=== PATIENT | male | born 2000 | race Two or more races ===

== ENCOUNTER 2025-04-11 22:11 | Emergency (ER) | payer SELFPAY ==
[2025-04-11 22:14] VITALS: BMI 19.6
--- NOTE | 2025-04-11 23:03 | EKG_ITS ---
[facility] Test Date: 2025-04-11 Pat Name: LIMA Mackeypartment: Room: - Gender: Male [employer]: : 2000 Requested By: Luis Meléndez Order Number: [id number] Reading MD: Luis Meléndez Measurements Intervals [place] Rate: 62 P: 78 TX: 157 QRS: 118 QRSD: 93 T: 59 QT: 357 QTc: 364 Interpretive Statements SINUS RHYTHM LEFT POSTERIOR FASCICULAR BLOCK [QRS AXIS > 109, INFERIOR Q] EARLY REPOLARIZATION [ST ELEVATION WITH NORMALLY INFLECTED T-WAVE] No previous ECG available for comparison /[id number]/[email or web address]/[id number]
--- NOTE | 2025-04-11 23:03 | XR_ITS ---
Examination: CT brain head without contrast. 2-D sagittal coronal reconstructions Date and time of exam: April 11, 2025, 1143 hours INDICATIONS: Onset headache today CTDI: vol (mGy): 49.1 DLP: (mGycm): 995 Technique: Multiple CT axial sections of the brain have been obtained, 5 mm slice thickness. Contrast has not been administered. 2-D sagittal, coronal reconstructions have been obtained Low dose protocols were performed. One or more of the following dose reduction techniques were used; automated exposure control, adjustment of the mA and/or KV according to patient size, use of iterative reconstruction technique. Findings: No significant ventricular enlargement. Intra-axial or extra-axial hemorrhage density is not seen. No mass effect or midline shift Basal cisterns are not remarkable. Fourth ventricle is midline. Cranial vault intact. Impression: Negative for acute hemorrhage, mass effect or midline shift Advise clinical correlation and follow-up accordingly
--- NOTE | 2025-04-11 23:03 | XR_ITS ---
Examination: CT lumbar spine, without contrast. 2-D sagittal reconstructions. 2-D coronal reconstructions. 3-D reconstructions. Date and time of exam: April 11, 2025, 11:45 p.m. INDICATIONS: Injury to the back 2 years ago, back pain today CTDI: vol (mGy): 22.9 DLP: (mGycm): 799 Technique: Multiple 1.25 mm axial sections of the lumbar spine without intravenous contrast have been obtained. 2-D sagittal and coronal reconstructions have been obtained. 3-D reconstructions have been obtained. Low dose protocols were performed. One or more of the following dose reduction techniques were used; automated exposure control, adjustment of the mA and/or KV according to patient size, use of iterative reconstruction technique. Findings: Satisfactory alignment lumbar vertebral bodies No lumbar vertebral body compression fracture No spondylolisthesis Mild disc narrowing posteriorly L5-S1 Lumbar pedicles, laminae, transverse and posterior spinous processes intact L5-S1 4 mm central lumbar disc bulge contiguous with the right and left S1 nerve roots More cephalad levels unremarkable IMPRESSION: No lumbar fracture L5-S1 4 mm central lumbar disc bulge contiguous with the right and left S1 nerve roots Consider elective MRI lumbar spine without contrast follow-up
--- NOTE | 2025-04-11 23:03 | XR_ITS ---
Examination: Bilateral hips, AP pelvis, 5 views Technique: AP, lateral views both hips, AP pelvis, 5 views Exam date and time: April 11, 2025 11:19 p.m. INDICATIONS: Bilateral hip pain 1 month. FINDINGS: Healed left hip fracture satisfactory alignment Mild narrowing hip joint bilaterally No acute fracture Bones of the pelvis intact IMPRESSION: Mild narrowing hip joints bilaterally
[2025-04-11 23:06] VITALS: BP 127/72; PULSE 70; RESP 18; TEMP 36.7; O2SAT 99
[2025-04-11 23:27] LABS: Basophils # (Auto) 0.1 Thou/mm3 (0.0-0.2); Basophils % (Auto) 1 % (0-2.5); Eosinophils # (Auto) 0.2 Thou/mm3 (0.0-0.5); Eosinophils % (Auto) 4 % (0-10); Hematocrit 43.8 % (41.0-53.0); Hemoglobin 14.8 g/dL (13.5-16.0); Immature Granulocytes Auto 0.01 Thou/mm3 (0.00-0.00); Lymphocytes # (Auto) 1.9 Thou/mm3 (1.0-4.8); Lymphocytes % (Auto) 34 % (10-50); Mean Corpuscular HGB Conc 33.8 g/dl (31.0-37.0); Mean Corpuscular Hemoglobin 30.8 pg (25.0-35.0); Mean Corpuscular Volume 91 fL (80-100); Monocytes # (Auto) 0.4 Thou/mm3 (0.0-0.8); Monocytes % (Auto) 8 % (0-12); Neutrophils # (Auto) 2.9 Thou/mm3 (1.8-7.7); Neutrophils % (Auto) 54 % (37-80); Nucleated Red Blood Cell # 0.00 Thou/mm3 (0.00-0.00); Nucleated Red Blood Cell % 0 /100 WBC (0); Platelet Count 168 Thou/mm3 (140-440); RDW Standard Deviation 38.8 fL (35.1-43.9); Red Blood Count 4.81 Miln/mm3 (4.50-5.90); White Blood Count 5.5 Thou/mm3 (3.8-10.6)
[2025-04-12] LABS: Alanine Aminotransferase 30 U/L (10-49); Albumin, Serum 5.1 gm/dL (3.5-5.0); Albumin/Globulin Ratio 1.8 (1.2-2.2); Alkaline Phosphatase 142 U/L (46-116); Anion Gap 9 (7-16); Aspartate Amino Transferase 29 U/L (0-34); BUN/Creatinine Ratio 15 Ratio (12-20); Bilirubin,Total 0.5 mg/dL (0.3-1.2); Blood Urea Nitrogen 15 mg/dL (9-23); Calcium 10.0 mg/dL (8.3-10.6); Calcium (Corrected) 10.0 mg/dL (8.5-10.1); Carbon Dioxide 28.1 mMol/L (20.0-31.0); Chloride 105 mMol/L (98-107); Creatinine (Component) 1.0 mg/dL (0.6-1.3); Estimated Creatinine Clearance 98.4 mL/min (>60); Globulin 2.9 gm/dL (2.3-3.5); Glucose 114 mg/dL (74-106); Osmolality,Calculated 284 (275-295); Potassium 3.9 mMol/L (3.4-5.1); Sodium 142 mMol/L (136-145); Total Protein 8.0 gm/dL (5.7-8.2); Troponin I 0.043 ng/mL (0.0-0.045); eGFR > 60 See Note
[2025-04-12 01:31] LABS: Collection Type, Urine Voided; Squamous Epithelial Cell,Urine 0 /hpf (0-5)
[2025-04-12 01:38] LABS: Bacteria,Urine Rare; Bilirubin,Urine Negative (Negative); Blood,Urine Negative (Negative); Budding Yeast,Urine Present; Clarity,Urine Clear (Clear/Hazy); Color,Urine Lt-Yellow (Lt Yel-Yel); Glucose, Urine Negative (Negative); Ketones,Urine Negative (Negative); Leukocyte Esterase,Urine Negative (Negative); Nitrite,Urine Negative (Negative); PH,Urine 6.0 (5.0-7.0); Protein,Urine Negative (Neg - Trace); RBC,Urine 8 /hpf (0-3); Specific Gravity,Urine 1.027 (1.001-1.035); Urobilinogen,Urine Negative mg/dL (0.0-1.0); WBC,Urine 1 /hpf (0-5)
--- NOTE | 2025-04-12 02:24 | PD.EDHIP ---
Lower Extremity Injury RME/HPI General Chief Complaint: General Adult/Misc Complain Stated Complaint: BILATERAL HIP PAIN AND WEAKNESS Time Seen by Provider: 04/11/25 22:22 Arrival date/time: 04/11/25 22:11 This is a case of 24-year-old male with history of hip surgery on the left hip came in in the emergency room due to on and off pain on both hip and lower back for 1 month patient states that the pain is radiating to both lateral leg no numbness no weakness tingling sensation patient is also concerned about 1 episode of syncope 1 week ago but no recurrence patient denied any chest pain shortness of breath palpitation blurring of vision abdominal pain nausea vomiting patient denies any hitting of head in the floor persistence of the hip pain thus patient decided to sought consult here in the emergency room Limitations: no limitations Related Data Previous Rx's ?Medication ?Instructions ?Recorded baclofen 10 mg tablet 10 mg PO BID PRN muscle spasm #10 04/12/25 tabs hydrocodone 5 mg-acetaminophen 325 1 tab PO Q6H PRN pain #12 tabs 04/12/25 mg tablet Allergies Allergy/AdvReac Type Severity Reaction Status Date / Time No Known Allergies Allergy Verified 04/11/25 22:19 Review of Systems Review of Systems Systems Reviewed: All systems reviewed, normal except as documented Constitutional Constitutional: Reports system reviewed and no additional complaints, except as documented and Reports as per HPI Eyes Eyes: Reports system reviewed and no additional complaints, except as documented and Reports as per HPI ENT Ears, Nose, Mouth, and Throat: Reports system reviewed and no additional complaints, except as documented and Reports as per HPI Cardiovascular Cardiovascular: Reports system reviewed and no additional complaints, except as documented and Reports as per HPI Respiratory Respiratory: Reports system reviewed and no additional complaints, except as documented and Reports as per HPI Musculoskeletal Musculoskeletal: Reports system reviewed and no additional complaints, except as documented and Reports as per HPI Neurologic Neurologic: Reports system reviewed and no additional complaints, except as documented and Reports as per HPI Past Medical History Social History SMOKING STATUS: Never smoker ED Exam General Limitations: Present no limitations General appearance: Present alert, in no apparent distress and other (Patient is awake alert oriented not in distress nontoxic looking well and hydrated well nourished) Head Head exam: Present atraumatic, normocephalic and normal inspection Eye Eye exam: Present normal appearance, PERRL, EOMI and other (PERRL EOM intact normal conjunctiva no pappiledema nonhypehma) ENT ENT exam: Present normal exam, normal oropharynx, mucous membranes moist and other (Normal HEENT exam) Neck Neck exam: Present normal inspection, full ROM, trachea midline and other (Negative for meningeal sign); Absent tenderness, meningismus, lymphadenopathy or thyromegaly Chest Chest inspection: Present normal inspection and symmetric chest wall rise; Absent tenderness Respiratory Respiratory exam: Present normal lung sounds bilaterally; Absent respiratory distress, wheezes, stridor, accessory muscle use or prolonged expiratory phase Cardiovascular Cardiovascular exam: Present regular rate, normal rhythm and normal heart sounds; Absent bradycardia, tachycardia, irregular rhythm, systolic murmur or diastolic murmur Abdominal Exam Abdominal exam: Present soft and normal bowel sounds; Absent distention, tenderness, guarding, rebound, rigidity, diminished bowel sounds, hyperactive bowel sounds, hypoactive bowel sounds or organomegaly Extremities Exam Extremities exam: Present normal inspection and full ROM Expanded Lower Extremity Exam Hip/Pelvis exam: Present normal inspection, full ROM, tenderness, pelvis stable and other (Mild tenderness in both hips but no crepitation no clicking sound no redness no cellulitis no swelling ROM intact neurovascular and intact); Absent swelling, abrasion, laceration, ecchymosis, deformity, crepitus, dislocation, erythema, external rotation, internal rotation or shortening Upper leg exam: Present normal inspection and full ROM; Absent tenderness or swelling Lower leg exam: Present normal inspection, full ROM, Achilles tendon intact and other (Negative Cates sign); Absent tenderness, swelling, abrasion, laceration, ecchymosis, deformity, crepitus, dislocation, erythema, palpable cord or Homans' sign Back Exam Back exam: Present normal inspection, full ROM and tenderness (Mild to moderate tenderness L1-L5 no crepitation no deformity no redness no swelling no CVA tenderness mild muscle spasm no paraspinal no paravertebral tenderness leg raise exam is normal steady gait); Absent CVA tenderness (R), CVA tenderness (L), muscle spasm, paraspinal tenderness, vertebral tenderness, rashes, sciatic notch tenderness (R), sciatic notch tenderness (L), straight leg raise (R) or straight leg raise (L) Neurological Exam Neurological exam: Present alert, oriented X3, CN II-XII intact, normal gait, reflexes normal and other (Awake alert oriented x 4 no focal deficit GCS 15/15 steady gait memory intact no slurring speech no facial droop motor or sensory reflex were all normal in all extremity); Absent motor sensory deficit Psychiatric Psychiatric exam: Present normal affect and normal mood Skin Skin exam: Present warm, dry, intact, normal color and other (Excellent skin turgor) Course Quality Measures none Orders Category Date Time Status EKG (ED ONLY) *Do not use* NOW Care 04/11/25 23:[address] head/brain wo con Stat Exams 04/11/25 23:[address] lumbar spine wo con Stat Exams 04/11/25 23:03 Completed EKG (ED Only) Stat Exams 04/11/25 23:03 Draft XR hip BI w pelvis 2V Stat Exams 04/11/25 23:03 Completed CBC Stat Lab 04/11/25 23:19 Completed CMP [Comprehensive Metabolic Panel] Stat Lab 04/11/25 23:19 Completed Troponin I Stat Lab 04/11/25 23:19 Completed Urinalysis Stat Lab 04/12/25 01:25 Completed HYDROcodone*/APAP 5/325 [Krypton 5/325] Med 04/12/25 02:00 Discontinued 1 tab PO X1 ONE dexAMETHasone INJ [Decadron Inj] Med 04/12/25 02:00 Discontinued 10 mg IM X1 ONE Vital Signs Vital signs: Vital Signs Temperature 98.1 F 04/11/25 23:06 Pulse Rate 70 04/11/25 23:06 Respiratory Rate 18 04/11/25 23:06 Blood Pressure 127/72 04/11/25 23:06 Pulse Oximetry (%) 99 04/11/25 23:06 Oxygen Delivery Method Room Air 04/11/25 23:06 Oxygen saturation is 99% in room air Extremity Injury, Lower MDM Narrative MDM Narrative:: This is a case of 24-year-old male with history of hip surgery on the left hip came in in the emergency room due to on and off pain on both hip and lower back for 1 month patient states that the pain is radiating to both lateral leg no numbness no weakness tingling sensation patient is also concerned about 1 episode of syncope 1 week ago but no recurrence patient denied any chest pain shortness of breath palpitation blurring of vision abdominal pain nausea vomiting patient denies any hitting of head in the floor persistence of the hip pain thus patient decided to sought consult here in the emergency room physical examination patient is awake alert oriented not in distress nontoxic looking vital signs stable BP stable not tachycardic not tachypneic afebrile and nonhypoxic orthostatic BP was performed by me and it was negative vital signs stable BP stable not tachycardic not tachypneic afebrile and nonhypoxic patient is negative for meningeal sign excellent skin turgor heart normal rate regular rhythm no murmur lungs sound is clear no crackles no rales no retraction no stridor abdominal exam is benign nonsurgical no guarding no rebound no rigidity no tenderness neurological exam is normal awake alert oriented x 4 no focal deficit GCS 15/15 steady normal memory no slurring of speech no facial droop motor or sensory reflex are all normal in all extremities to Babinski CN II to XII is normal patient blood test showed no leukocytosis no anemia kidney and liver function is normal no electrolyte imbalance urinalysis is normal troponin is negative EKG sinus rhythm patient CT scan of the head were normal CT scan of the lumbar showed a bulging lumbar disc and x-ray of the hip showed narrowing of the hip joint based on my physical examination and history patient syncope is unknown possible due to vasovagal possible due to pain patient is also having arthritis of both hips and posterior bulging disc he was advised to follow-up with PCP in 2 days for reevaluation and to be referred to neurosurgeon for lumbar bulging disc orthopedic surgeon for arthritis of the both hip and neurologist for vasovagal syncope worsening symptoms or any emergent concern return precaution in the ER is advised Patient was discharged with comfortable condition walking with stable gait. Patient verbalized no further complains explained diagnosis and answered patient question. Patient is comfortable with the proposed management plan including the need to follow up with his/her primary care physician and any specialist if applicable Discussed patient for any urgent condition or worsening sx, He/She needed to go to emergency room immediately or call 911. Patient acknowledge the responsibility to follow up as instructed and to monitor her/his symptoms. For any persistence of the symptoms for more than 3-5 days return precaution advised. Discussed the result of the test and was given printed discharge instruction Patient data External records reviewed:: [facility] previous records Clinical information provided by:: patient Social determinants that could affect healthcare access:: none Patient has the following chronic illnesses:: None How is presenting disease/condition affected by chronic disease/condition?: no chronic disease Evaluation data The following diagnostics were reviewed and interpreted by me:: lab results, radiology exam(s) and EKG tracing(s) Lab and/or radiology exams considered but not ordered:: Reviewed Interpretation Summary: Reviewed Medications / Prescriptions Medications or Prescriptions considered but not ordered:: Given Medication administrations:: Medication Administration History Discontinued Medications Hydrocodone Bitart/Acetaminophen (Hydrocodone/Apap 5/325 Tablet) 1 tab PO X1 ONE Stop: 04/12/25 02:01 Last Admin: 04/12/25 02:19 Dose: Not Given Documented By: MICHELINE Non-Admin Reason: Not In Room Dexamethasone Sodium Phosphate (Dexamethasone Sod Phos Inj 10 Mg/Ml Vial) 10 mg IM X1 ONE Stop: 04/12/25 02:01 Last Admin: 04/12/25 02:19 Dose: Not Given Documented By: MICHELINE Non-Admin Reason: Not In Room Given Consultations Consultation(s) initiated? (list below): No Diagnosis Extremity Injury, Lower Differential Diagnosis: fracture of hip, fracture of toe and ankle fracture Most likely diagnosis given after review of the tests above:: Hip arthritis lumbar bulging disc syncope Admission Indicated Admission indicated?: not indicated Explain why admission is indicated or not indicated:: Not indicated Admission Request Was there a request for admission?: No Admission Attestation Admission request attestation: Not indicated Disposition Plan Disposition Plan: Discharge Discharge Attestation Discharge Attestation: The patient and all family members were given an opportunity to ask questions and understood the discharge instructions. Discharge instructions specifically effects, indications for sooner follow up or return to the emergency department, and the expected course of current diagnosis. Patient condition: Stable Discharge Plan Plan Patient Disposition: HOME (Self Care) Patient condition on transfer: Stable Prescriptions/Referrals Prescriptions/Med Rec: New hydrocodone-acetaminophen 5-325 mg tablet 1 tab PO Q6H MDD max 4 tabs per day PRN (Reason: pain) Qty: 12 0RF baclofen 10 mg tablet 10 mg PO BID PRN (Reason: muscle spasm) Qty: 10 0RF Referrals: No Primary/Family,Physician [Primary Care Provider] - In 1 week Problem List Clinical Impression: Syncope, Bilateral hip joint arthritis, Bulging lumbar disc Patient/Caregiver Discharge Instructions Education Materials: What Is Syncope?, Common Spine and Disk Problems, ED Degenerative Disk Disease, ED Osteoarthritis, ED RICE Additional Instructions: Follow-up with your primary care physician in 2 days for reevaluation and to be referred to neurologist for further evaluation and treatment of syncopal episode he also need to see a neurosurgeon for further evaluation and treatment of your lumbar bulging disc and orthopedic surgeon for your hip arthritis recurrence persistent worsening symptoms or any emergent concerns such as numbness weakness tingling sensation incontinence to urine or stool return to the emergency room immediately or call 911 take your medication as directed ice pack and warm compress as needed for pain Print Language: Khmer Stand Alone Forms: Janel Award Info., Patient Portal Info Letter PA/[employer] Supervising Physician PA/[employer] Supervising Physician: Dr. Valenzuela
== END 2025-04-12 02:21 | disposition home or self-care (01) ==
PROVIDERS: Nurse Practitioner Family; Emergency Provider Emergency Medicine
DX: M16.0 Bilateral primary osteoarthritis of hip (principal); M51.360 Other intervertebral disc degeneration, lumbar region with discogenic back pain only; I44.5 Left posterior fascicular block; R51.9 Headache, unspecified; R55 Syncope and collapse
CPT/HCPCS: 36415; 70450; 72131; 73521; 80053; 81001; 84484; 85025; 93005; 99283